=== PATIENT | male | born 1980 | race Caucasian/White ===

== ENCOUNTER 2018-12-18 15:14 | Emergency (ER) | payer SELFPAY ==
[~2018-12-18] VITALS: Ht 177.8 cm; Wt 108.9 kg
[2018-12-18 15:30] VITALS: BP 149/99
--- NOTE | 2018-12-18 15:30 | NUR ---
ED Nurse Note: pt walked in to ED with caregiver from rehab center due to high blood pressure. pt does not know the number. 149/99mmHg with 98 HR at the bed side. pt denies any pain. AAO x4. respirations even and non-labored noted. skin warm to touch. no open wound noted. will wait for the further order.
--- NOTE | 2018-12-18 16:47 | Emergency Room Report ---
History of Present Illness General Chief Complaint: Hypertension Source: Patient Present Illness HPI This patient states that he has an elevated blood pressure. He states that he is currently 6 days out from starting an alcohol rehabilitation program. He states that he is 6 days since a drink of alcohol. He states that his father has a history of high blood pressure. He states that his blood pressure was taken at the rehab facility and it was elevated to 170 systolic. He states he is also had difficulty sleeping and has been anxious. He denies chest pain or shortness of breath. He denies abdominal pain. He denies headache. He denies blurry vision. He has no other complaints. He is on Cymbalta, trazodone. Allergies: Coded Allergies: No Known Allergies (Unverified , 12/18/18) Patient History Past Medical History: see triage record Social History: Denies: smoking, alcohol use - 6 days w/o ETOH, drug use Reviewed Nursing Documentation: PMH: Agreed; PSxH: Agreed Nursing Documentation-PMH Past Medical History: No History, Except For Review of Systems All Other Systems: negative except mentioned in HPI Physical Exam Vital Signs Date Time Temp Pulse Resp B/P (MAP) Pulse Ox O2 Delivery O2 Flow Rate FiO2 12/18/18 15:24 98.8 106 17 159/88 (111) 94 12/18/18 15:30 Room Air Sp02 EP Interpretation: reviewed, normal General Appearance: no apparent distress, alert, GCS 15, non-toxic Head: normocephalic, atraumatic Eyes: bilateral eye normal inspection, bilateral eye PERRL ENT: hearing grossly normal, normal pharynx, no angioedema, normal voice Neck: full range of motion, supple/symm/no masses Respiratory: chest non-tender, lungs clear, normal breath sounds, no respiratory distress, no retraction, no accessory muscle use, speaking full sentences Cardiovascular #1: regular rate, rhythm, no edema Gastrointestinal: normal bowel sounds, non tender, soft, non-distended, no guarding, no rebound Rectal: deferred Musculoskeletal: back normal, gait/station normal, normal range of motion, non- tender Neurologic: alert, oriented x3, responsive, motor strength/tone normal, sensory intact, speech normal Psychiatric: judgement/insight normal, memory normal, mood/affect normal, no suicidal/homicidal ideation Medical Decision Making Diagnostic Impression: Primary Impression: Hypertension ER Course This patient has hypertension. He is also de-toxing in a rehab facility. He is 6 days out from his last drink of alcohol. He has low-grade withdrawal but otherwise is well-appearing. I do not feel that he needs inpatient treatment. I offered this patient Librium, however, he states that this is not allowed in the rehab facility. I will start the patient on a blood pressure medication and I will give him Benadryl for sleep. At this time, I do not feel that this patient needs any further evaluation the emergency department. The patient is given return precautions and follow-up instructions. Last Vital Signs Date Time Temp Pulse Resp B/P (MAP) Pulse Ox O2 Delivery O2 Flow Rate FiO2 12/18/18 15:30 98.1 98 26 149/99 97 Room Air Status: improved Disposition: HOME, SELF-CARE Condition: Improved Damaris Freedman DO Dec 18, 2018 16:47
[2018-12-18] MEDS ORDERED: BENADRYL25 MG ORAL (16:49)
[2018-12-18] MEDS ORDERED: METOPROLOL SUCC25 MG ORAL (16:49)
[2018-12-18 16:58] VITALS: BP 141/93
--- NOTE | 2018-12-18 17:01 | NUR ---
ER DISCHARGE NOTE: Patient is cleared to be discharged per ERMD, pt is aox4, on room air, with stable vital signs. Patient was given dc and prescription instructions. Patient was able to verbalize understanding. ID band removed. Patient is able to ambulate with steady gait with all his belongings.
== END 2018-12-18 17:01 | disposition home or self-care (01) ==
LOC: EMR 15:56
DX: I10 Essential (primary) hypertension (principal)
CPT/HCPCS: 99282